=== PATIENT | male | born 1980 | race Caucasian/White ===

== ENCOUNTER 2018-06-20 13:57 | Day surgery (SDC) | payer OTHER ==
[2018-06-20] VITALS (7 sets, daily range): BP systolic 95–129; BP diastolic 60–85; PULSE 70–92; TEMP 98.5–98.8
[~2018-06-20] VITALS: Ht 180.3 cm; Wt 81.1 kg
[2018-06-20] MEDS ORDERED: MOTRIN 200200 MG/TAB PO (15:10)
== END 2018-06-20 21:45 | disposition home or self-care (01) ==
LOC: SDCO 13:57 → SURG 19:48 → SDCO 21:45
DX: S81.032A Puncture wound without foreign body, left knee, initial encounter (principal); Z80.0 Family history of malignant neoplasm of digestive organs
CPT/HCPCS: OP; J0690; J1100; J1885; J2270; J2405; J2704; J3010; J7120

== ENCOUNTER 2020-05-30 15:26 | Outpatient (CLI) | payer OTHER ==
[~2020-05-30 15:26] MED LIST: MOTRIN 200200 MG/TAB PO
== END 2020-06-02 ==
LOC: COL.RAD
DX: R79.89 Other specified abnormal findings of blood chemistry (principal); R86.1 Abnormal level of hormones in specimens from male genital organs
CPT/HCPCS: A9585